=== PATIENT | male | born 1985 | race Caucasian/White ===

== ENCOUNTER 2019-04-14 18:22 | Emergency (ER) | payer OTHER ==
[2019-04-14 20:14] VITALS: BP 147/92
[2019-04-14] MEDS ORDERED: ACETAMINOPHEN 500 MG TABLET PO STA (20:20)
--- NOTE | 2019-04-14 20:30 | Ultrasound Report ---
Reason: testicular pain Procedure Date: 04/14/2019 Accession Number: [id number] / [id number] Procedure: US - Testicle w/Doppler Limited CPT Code: FULL RESULT: EXAM: SCROTAL ULTRASOUND EXAM DATE: 04/14/2019 07:48 PM. CLINICAL HISTORY: Testicular pain. COMPARISON: 04/14/2019 7:49 PM. TECHNIQUE: Real-time scanning was performed with static images obtained. Color-flow images were utilized. FINDINGS: Right: Testis: 4.6 x 2.4 x 2.9 cm. Normal size and echotexture. No mass, calcification, or abnormal blood flow. Epididymis: 1.2 x 0.6 x 0.9 cm. Normal size and echotexture. No mass or abnormal blood flow. Hydrocele: None. Varicocele: None. Left: Testis: 4.6 x 2.3 x 2.7 cm. Normal size and echotexture. No mass, calcification, or abnormal blood flow. Epididymis: 1 x 0.6 x 1.4 cm. Normal size and echotexture. No mass or abnormal blood flow. Hydrocele: None. Varicocele: None. IMPRESSION: Normal scrotal ultrasound. RADIA
--- NOTE | 2019-04-14 20:41 | ED Physician Documentation ---
History of Present Illness - Stated complaint Stated Complaint: MALE /POST PROCEDURE - Chief complaint Chief Complaint: General - History obtained from History obtained from: Patient - History of Present Illness Pain level max: 5 Pain level now: 5 Severity Comments: pain in left testicle, sharp shooting, radiating up into his abdomen Quality: sharp shooting in left testicle Radiates to: into left abdomen Improved by: nothing Worsened by: walking Associated symptoms: denies swelling, redness, discharge, discoloration, nausea, vomiting or fever - Treatment prior to arrival Treatment prior to arrival: ibuprofen - Additonal information Additional information: Patient had a vasectomy performed on April 02 and since then felt okay but then developed pain in the L testicle that he states isn't sitting right. Review of Systems Ten Systems: 10 systems reviewed and negative Constitutional: denies: Fever, Chills GI: denies: Abdominal Pain, Abdominal Swelling, Nausea, Vomiting : reports: Testicular pain. denies: Dysuria, Frequency, Hesitancy, Incontinent, Hematuria, Discharge, Testicular mass Skin: reports: Reviewed and negative PD PAST MEDICAL HISTORY - Past Medical History Past Medical History: Yes Cardiovascular: None Respiratory: Other Neuro: None Endocrine/Autoimmune: None GI: None : None HEENT: None Psych: None Musculoskeletal: None Derm: None Other Past Medical History: valley fever - Past Surgical History Past Surgical History: Yes HEENT: Tonsil/Adenoidectomy, Other - Present Medications Home Medications: Ambulatory Orders Medication Instructions Recorded Confirmed No Known Home Medications 04/14/19 04/14/19 - Allergies Allergies/Adverse Reactions: Allergies Allergy/AdvReac Type Severity Reaction Status Date / Time No Known Drug Allergies Allergy Verified 04/14/19 18:27 - Social History Does the pt smoke?: No Smoking Status: Never smoker Does the pt drink ETOH?: Yes Does the pt have substance abuse?: No - Immunizations Immunizations are current?: Yes PD ED PE NORMAL - Vitals Vital signs reviewed: Yes - General General: Alert and oriented X 3, No acute distress, Well developed/nourished - HEENT HEENT: Atraumatic, Pharynx benign - Neck Neck: Supple, no meningeal sign - Cardiac Cardiac: RRR - Respiratory Respiratory: No respiratory distress - Abdomen Abdomen: Soft, Non tender, Non distended - Rectal Rectal: Deferred - Derm Derm: Normal color, Warm and dry, No rash - Neuro Neuro: Alert and oriented X 3 Eye Opening: Spontaneous Motor: Obeys Commands Verbal: Oriented GCS Score: 15 - Psych Psych: Normal mood, Normal affect PD ED PE EXPANDED - Male Male : Normal Exam, Circumcised, Testes descended sharif, Normal lie/cremastaric, Other (no redness, swelling or abnormal lie). No: Skin lesions, Discharge, Testicular Mass, Tenderness Results - Vitals Vitals: Vital Signs - 24 hr 04/14/19 04/14/19 18:25 20:13 Temperature 36.6 C 37.4 C Heart Rate 93 80 Respiratory 20 15 Rate Blood Pressure 149/97 H 147/92 H O2 Saturation 97 96 Oxygen O2 Source Room air - Rads (name of study) No standard instances Radiology: Final report received (negative US of testicles, normal doppler flow) PD MEDICAL DECISION MAKING - ED course Complexity details: reviewed results, considered differential, d/w patient ED course: ddx - infection, abscess, cellulitis, varicocele, hydrocele, postoperative pain, testicular torsion 33 y/o M with testicular pain s/p vasectomy, worsening rather than improving for the last week. No fever Normal examination with normal lie, no swelling, normal cremasteric. Normal testicular US. Advised pt to f/u with Urologist in the morning to discuss his symptoms. Departure - Departure Disposition: 01 Home, Self Care Clinical Impression: Testicular pain, left, Postoperative pain Condition: Stable Instructions: ED Testicular Pain [facility] Follow-Up: your, doctor [Other]
== END 2019-04-14 21:18 | disposition home or self-care (01) ==
LOC: ED 18:22
DX: G89.18 Other acute postprocedural pain (principal); N50.812 Left testicular pain; Z98.52 Vasectomy status
CPT/HCPCS: 76870; 93976; 99282; 99283; A9270

== ENCOUNTER 2021-05-15 10:37 | Day surgery (SDC) | payer OTHER ==
[2021-05-15] MEDS ORDERED: SODIUM CHLORIDE 0.9% 1,000 ML IV STA (14:56)
[2021-05-15] MEDS ORDERED: HYDROmorphone 1 MG/ML CARPUJECT IVP STA (14:56)
--- NOTE | 2021-05-15 15:00 | ED Physician Documentation ---
History of Present Illness - Stated complaint Stated Complaint: MALE - Chief complaint Chief Complaint: General - Additonal information Additional information: 35-year-old male presents the emergency department for evaluation of a rectal p ain. He reports that about 9 days ago he developed acute nausea vomiting and diarrhea which persisted for about 2 days before resolving. However shortly thereafter he began to notice pain in his rectal area but further up in a location that he describes as his tailbone. Those symptoms began about 4 days ago since then the pain has gotten progressively worse and is now unable to sit without pain. He noticed pain after wiping this morning. No fevers. No history of similar. No history of hemorrhoids. Review of Systems Constitutional: denies: Fever, Chills Eyes: reports: Reviewed and negative Nose: reports: Reviewed and negative Throat: reports: Reviewed and negative Cardiac: reports: Reviewed and negative Respiratory: reports: Reviewed and negative GI: reports: Abdominal Pain, Nausea, Vomiting, Diarrhea : reports: Other (Rectal pain) Skin: reports: Reviewed and negative Musculoskeletal: reports: Reviewed and negative PD PAST MEDICAL HISTORY - Past Medical History Cardiovascular: None Respiratory: Other Neuro: None Endocrine/Autoimmune: None GI: None : None HEENT: None Psych: None Musculoskeletal: None Derm: None - Past Surgical History Past Surgical History: Yes HEENT: Tonsil/Adenoidectomy, Other - Present Medications Home Medications: Ambulatory Orders Medication Instructions Recorded Confirmed No Known Home Medications 04/14/19 04/14/19 - Allergies Allergies/Adverse Reactions: Allergies Allergy/AdvReac Type Severity Reaction Status Date / Time No Known Drug Allergies Allergy Verified 05/15/21 11:02 - Social History Does the pt smoke?: No Smoking Status: Never smoker Does the pt drink ETOH?: Yes Does the pt have substance abuse?: No - Immunizations Immunizations are current?: Yes PD ED PE EXPANDED - General General: Alert, No acute distress - Cardiac Cardiac: Regular Rate, Radial strong equal, Pedal strong equal, Cap refill < 2 sec - Respiratory Respiratory: Clear to ausultation sharif. No: Distress, Labored - Abdomen Abdomen: Normal Bowel sounds. No: Tender to palpation - Rectal Rectal: Normal Tone, Other (draining right perirectal abscess with purulent drainage) - Derm Derm: Normal color, Warm and dry - Neuro Neuro: Alert and Oriented X 3, CNII-XII intact Results - Vitals Vitals: Vital Signs - 24 hr 05/15/21 05/15/21 10:57 17:00 Temperature 36.9 C Heart Rate 95 88 Respiratory 16 16 Rate Blood Pressure 139/70 H 139/78 H O2 Saturation 99 100 Oxygen O2 Source Room air - Labs Labs: Laboratory Tests 05/15/21 05/15/21 05/15/21 15:05 15:05 15:05 WBC 10.0 RBC 4.37 L Hgb 12.9 L Hct 38.1 L MCV 87.2 MCH 29.5 MCHC 33.9 RDW 11.8 L Plt Count 272 MPV 8.5 Neut # (Auto) 7.0 H Lymph # (Auto) 2.0 [place] # (Auto) 0.8 Eos # (Auto) 0.2 Baso # (Auto) 0.0 Absolute Nucleated RBC 0.00 Nucleated RBC % 0.0 Sodium 138 Potassium 3.6 Chloride 106 Carbon Dioxide 23 Anion Gap 9.0 BUN 9 Creatinine 0.7 Estimated GFR (MDRD) 128 Glucose 103 H Lactic Acid 0.9 Calcium 9.1 Total Bilirubin 0.7 AST 28 ALT 54 Alkaline Phosphatase 78 Total Protein 7.9 Albumin 4.4 Globulin 3.5 Albumin/Globulin Ratio 1.3 Lipase 26 - Rads (name of study) CTabd Radiology: Final report received (3.4 x 2.5 cm left paracentral perianal abs cess.) PD MEDICAL DECISION MAKING - ED course Complexity details: reviewed results, re-evaluated patient, d/w patient, d/w family ED course: 35-year-old male presents the emergency department with worsening rectal pain for a about 5 days now. This follows a bout of vomiting and diarrhea about 1 week ago. On exam he does have a draining perianal abscess. A CT scan was performed it does show a 3.4 x 2.5 cm perianal abscess. I discussed the imaging findings with Dr. Burciaga. Patient will be admitted to same-day surgery for planned evacuation of this abscess later this evening or tomorrow morning. He does request Zosyn as antibiotic coverage and patient to be n.p.o. Plan and findings were discussed with the patient and he is in agreement Departure - Departure Disposition: ED Transfer to [facility] Clinical Impression: Perianal abscess
[2021-05-15 15:11] LABS: BASOPHILS % (AUTO) 0.2 %; EOSINOPHILS # (AUTO) 0.2 10^3/uL (0.0-0.7); EOSINOPHILS % (AUTO) 1.5 %; HCT - HEMATOCRIT 38.1 % (42.0-52.0); HGB - HEMOGLOBIN 12.9 g/dL (14.0-18.0); LYMPHOCYTES % (AUTO) 20.3 %; MEAN CORPUSCULAR HEMOGLOBIN 29.5 pg (27.0-31.0); MEAN CORPUSCULAR HGB CONC 33.9 g/dL (32.0-36.0); MEAN CORPUSCULAR VOLUME 87.2 fL (80.0-94.0); MEAN PLATELET VOLUME 8.5 fL (7.4-11.4); MONOCYTES # (AUTO) 0.8 10^3/uL (0.0-1.0); MONOCYTES % (AUTO) 7.9 %; NEUTROPHILS % (AUTO) 69.7 %; PLT - PLATELET COUNT 272 10^3/uL (130-450); RED BLOOD COUNT 4.37 10^6/uL (4.70-6.10); RED CELL DISTRIBUTION WIDTH 11.8 % (12.0-15.0)
[2021-05-15] MEDS ORDERED: IOVERSOL 320 100 ML VIAL IVP ONE ×2 (15:25→20:10)
[2021-05-15 15:28] LABS: ALBUMIN 4.4 g/dL (3.2-5.5); ALBUMIN/GLOBULIN RATIO 1.3 (1.0-2.2); BILIRUBIN,TOTAL 0.7 mg/dL (0.2-1.0); CALCIUM 9.1 mg/dL (8.5-10.3); CREATININE 0.7 mg/dL (0.6-1.2); POTASSIUM 3.6 mmol/L (3.5-5.0); TOTAL PROTEIN 7.9 g/dL (6.7-8.2)
--- NOTE | 2021-05-15 16:23 | CT Report ---
PROCEDURE: Abdomen/Pelvis W INDICATIONS: perirectal abscess CONTRAST: IV CONTRAST: Optiray 320 ml: 100 PO CONTRAST: *NO PO CONTRAST TECHNIQUE: After the administration of intravenous contrast, 5 mm thick sections acquired from the diaphragms to the symphysis. 5 mm thick coronal and sagittal reformats were acquired. For radiation dose reducti on, the following was used: automated exposure control, adjustment of mA and/or kV according to reji ent size. COMPARISON: None. FINDINGS: Image quality: Excellent. ABDOMEN: Lung bases: Lung bases are clear. Heart size is normal. There is a small hiatal hernia. Solid organs: There is diffuse hypoattenuation of the liver consistent with fatty infiltration, with relative sparing along the gallbladder fossa. Gallbladder appears within normal limits without calci fied gallstones. Biliary system is non dilated. Pancreas enhances normally. No adrenal nodules. Ki dneys demonstrate no hydronephrosis. There is a nonobstructing left renal stone measuring up to 7 mm. A small cyst is present within the right kidney. Peritoneum and bowel: Bowel loops demonstrate normal wall thickness and caliber. The appendix is nor mal in appearance. There is colonic diverticulosis without acute diverticulitis. No free fluid or air . Nodes and vessels: No retroperitoneal or mesenteric adenopathy by size criteria. Aorta and inferior vena cava are normal in size. Miscellaneous: There is a small umbilical hernia with partial herniation of the anterior wall of the transverse colon. No associated bowel obstruction or wall thickening to suggest bowel stranding in re lation. PELVIS: Genitourinary: Bladder wall thickness is normal. Miscellaneous: No inguinal hernias or adenopathy. There is a left perianal heterogeneous collection measuring approximately 3.4 x 1.6 x 2.5 cm extendin g posteriorly along the left aspect of the gluteal cleft. There is adjacent serpiginous fat stranding within the ischiorectal fat. Bones: No suspicious bony lesions. No vertebral body compression fractures. IMPRESSION: 1. Left paracentral perianal collection likely representing a perianal abscess. Heterogeneous interna l attenuation likely reflects complex internal contents. Evaluation for possible associated fistula i s limited on CT. If clinically indicated, an anal fistula protocol MRI may be performed for further e valuation. 2. No intraperitoneal free fluid or fluid collections. 3. Hepatic steatosis. 4. Colonic diverticulosis. Reviewed by: Andres Choe MD on 05/15/2021 4:22 PM PDT Approved by: Andres Choe MD on 05/15/2021 4:22 PM PDT Station ID: [id number]
[2021-05-15] MEDS ORDERED: PIPERACILLIN/TAZOBACTAM 3.375 GM in SODIUM CHLORIDE 0.9% MINIBAG 100 ML IV STA (16:53)
[2021-05-15] MEDS ORDERED: oxyCODONE 5 MG TABLET PO PRN (18:14)
[2021-05-15] MEDS ORDERED: METOCLOPRAMIDE 10 MG/2 ML VIAL IVP PRN ×2 (18:14→20:19)
[2021-05-15] MEDS ORDERED: ONDANSETRON 4 MG/2 ML VIAL IVP PRN ×2 (18:14→20:19)
[2021-05-15 18:16] LABS: B. PARAPERTUSSIS- RESP PCR PAN NOT DETECTED; B. PERTUSSIS- RESP PCR PANEL NOT DETECTED; C. PNEUMONIAE- RESP PCR PANEL NOT DETECTED; CORONAVIRUS 229E-RESP PCR NOT DETECTED; CORONAVIRUS HKU1-RESP PCR NOT DETECTED; CORONAVIRUS NL63-RESP PCR NOT DETECTED; CORONAVIRUS OC43-RESP PCR NOT DETECTED; HUMAN METAPNEUMOVIRUS NOT DETECTED; INFLUENZA A- RESP PCR PANEL NOT DETECTED; INFLUENZA B - RESP PCR PANEL NOT DETECTED; M. PNEUMONIAE- RESP PCR PANEL NOT DETECTED; PARAINFLUENZA VIRUS 1 NOT DETECTED; PARAINFLUENZA VIRUS 2 NOT DETECTED; PARAINFLUENZA VIRUS 3 NOT DETECTED; PARAINFLUENZA VIRUS 4 NOT DETECTED; RHINOVIRUS/ENTEROVIRUS NOT DETECTED; RSV- RESP PCR PANEL NOT DETECTED; SARS-CoV-2 -RESP PCR PANEL NOT DETECTED
[2021-05-15] MEDS ORDERED: D5NS W/20 MEQ KCL 1,000 ML IV SCH (19:00)
[2021-05-15] MEDS ORDERED: MIDAZOLAM 2 MG/2 ML VIAL ONE (20:17)
[2021-05-15] MEDS ORDERED: fentaNYL 100 MCG/2 ML VIAL ONE ×2 (20:17→21:00)
--- NOTE | 2021-05-15 20:18 | ANESTHESIA ---
Pre-Anesthesia VS, & Labs - Diagnosis perianal abscess - Procedure I and D of perianal abscess Vital Signs: Temp Pulse Resp BP Pulse Ox 36.9 C 65 16 146/91 H 98 05/15/21 10:57 05/15/21 19:00 05/15/21 19:00 05/15/21 19:00 05/15/21 19:00 Height: 5 ft 11 in Weight (kg): 88.904 kg Body Mass Index: 27.3 BMI Classification: Overweight - NPO >8 hours - Lab Results Current Lab Results: Laboratory Tests 05/15/21 15:05: Lactic Acid 0.9 05/15/21 15:05: Sodium 138, Potassium 3.6, Chloride 106, Carbon Dioxide 23, An ion Gap 9.0, BUN 9, Creatinine 0.7, Estimated GFR (MDRD) 128, Glucose 103 H, Calcium 9.1, Total Bilirubin 0.7, AST 28, ALT 54, Alkaline Phosphatase 78, Total Protein 7.9, Albumin 4.4, Globulin 3.5, Albumin/Globulin Ratio 1.3, Lipase 26 05/15/21 15:05: WBC 10.0, RBC 4.37 L, Hgb 12.9 L, Hct 38.1 L, MCV 87.2, MCH 29.5, MCHC 33.9, RDW 11.8 L, Plt Count 272, MPV 8.5, Neut # (Auto) 7.0 H, Lymph # (Auto) 2.0, [place] # (Auto) 0.8, Eos # (Auto) 0.2, Baso # (Auto) 0.0, Absolute Nucleated RBC 0.00, Nucleated RBC % 0.0 Fish Bones: 05/15/21 15:05 05/15/21 15:05 Home Medications and Allergies Active Medications Docusate Sodium (Docusate Sodium 100 Mg Capsule) 100 mg PO BID JENNIFER Ciprofloxacin (Cipro 400 Mg/200 Ml) 400 mg in 200 mls @ 200 mls/hr IV Q12H JENNIFER Potassium Chloride/Dextrose/Sod Cl (D5ns W/20 Meq Kcl) 1,000 mls @ 125 mls/hr IV .Q8H JENNIFER Metronidazole (Flagyl 500 Mg/100 Ml) 500 mg in 100 mls @ 100 mls/hr IV Q8H JENNIFER Ioversol (Ioversol 320 100 Ml Vial) 100 ml IVP ONCE ONE Stop: 05/15/21 20:11 Last Admin: 05/15/21 20:10 Dose: 100 ml Documented by: Methocarbamol (Methocarbamol 500 Mg Tablet) 500 mg PO Q6HR JENNIFER Metoclopramide HCl (Metoclopramide 10 Mg/2 Ml Vial) 10 mg IVP Q6HR PRN PRN Reason: nausea Ondansetron HCl (Ondansetron 4 Mg/2 Ml Vial) 4 mg IVP Q6HR PRN PRN Reason: Nausea / Vomiting Oxycodone HCl (Oxycodone 5 Mg Tablet) 5 mg PO Q4HR PRN PRN Reason: PAIN Polyethylene Glycol (Polyethylene Glycol 3350 17 Gm Packet) 17 gm PO BID JENNIFER No Known Home Medications 04/14/19 Allergies/Adverse Reactions: Allergies Allergy/AdvReac Type Severity Reaction Status Date / Time No Known Drug Allergies Allergy Verified 05/15/21 11:02 Anes History & Medical History - Anesthetic History Anesthesia Complications: reports: No previous complications - Medical History Cardiovascular: reports: None Pulmonary: reports: Other Gastrointestinal: reports: None Urinary: reports: None Neuro: reports: None Musculoskeletal: reports: None Endocrine/Autoimmune: reports: None Blood Disorders: reports: None Skin: reports: None Smoking Status: Never smoker - Surgical History Eyes Ears Nose Throat (EENT): reports: Tonsil/Adenoidectomy, Other Urologic: reports: Testicular surgery Exam General: Alert, Oriented x3 Dental: WNL Mouth Opening: Greater than 4 Fingerbreadths Neck Mobility: Normal Mallampati classification: II Thyromental Distance: greater than 6 cm Respiratory: Lungs clear Cardiovascular: Regular rate Plan Anesthesia Type: General Consent for Procedure(s) Verified and Reviewed: Yes Code Status: Attempt Resuscitation ASA classification: 2-Mild systemic disease Is this case an emergency?: Yes
[2021-05-15] MEDS ORDERED: ePHEDrine 50 MG/ML VIAL IVP PRN (20:19)
[2021-05-15] MEDS ORDERED: HYDROmorphone 0.5 MG/0.5 ML SYRINGE IVP PRN ×2 (20:19→21:33)
[2021-05-15] MEDS ORDERED: NALOXONE 0.4 MG/ML VIAL IVP PRN (20:19)
[2021-05-15] MEDS ORDERED: MORPHINE 2 MG/ML CARPUJECT IVP PRN (20:19)
[2021-05-15] MEDS ORDERED: fentaNYL 100 MCG/2 ML VIAL IVP PRN (20:19)
[2021-05-15] MEDS ORDERED: ATROPINE ABBOJECT 1 MG/10 ML SYRINGE IVP PRN (20:19)
[2021-05-15] MEDS ORDERED: PROPOFOL 200 MG/20 ML VIAL IVP ONE (20:23)
[2021-05-15] MEDS ORDERED: ONDANSETRON 4 MG/2 ML VIAL ONE (20:23)
[2021-05-15] MEDS ORDERED: LIDOCAINE-MPF 2% 5 ML VIAL ONE (20:23)
[2021-05-15] MEDS ORDERED: DEXAMETHASONE 4 MG/ML VIAL ONE (20:23)
--- NOTE | 2021-05-15 20:27 | SURGERY HX AND PHYSICAL(T) ---
Surgical History & Physical - Chief Complaint/HPI Chief Complaint: Fever, perianal abscess, levator spasm History of Present Illness: 35-year-old male presenting for perianal pain acute in onset. Patient reports awaking this morning with worsening of anal pain that began several days prior. Patient reports having suffered a gastroenteritis with loose stooling that has resolved however thereafter within the last few days she developed right perianal fullness and exquisite pain that became worse with resultant drainage. He was advised to proceed to the emergency room for further evaluation. No chronic history of bloody or loose stool. No family history of inflammatory bowel disease. No other pertinent medical history. Patient is active within the [employer]. No significant family history. Notable past surgical history to include none. Patient denies change in bowel function outside of recent gastroenteritis with diarrhea, denies bleeding per rectum, and also denies reflux associated symptoms. Patient does not use tobacco. Patient has a history of alcohol use but denies any associated abuse. Patient is and has children. Has no impediment to significant exercise tolerance and can walk 2 flights of stairs without hindrance. No history of heart attack or stroke. Patient takes no systemic anticoagulation. Endoscopic history includes none. - PMH/PSH/Social Hx Neurological History: None Eyes, Ears, Nose, Throat: None Cardiovascular: None Respiratory: Other Skin: None Endocrine/Autoimmune: None Gastrointestinal: None Urinary: None Musculoskeletal: None Blood Disorders: None Psychiatric: None Urologic: Testicular surgery Eyes Ears Nose Throat (EENT): Tonsil/Adenoidectomy, Other Smoking Status: Never smoker Does the pt drink ETOH?: Yes Frequency: Occasional Does the pt have substance abuse?: No - Home Meds and Allergies Home Medications: No Known Home Medications 04/14/19 Allergies/Adverse Reactions: Allergies Allergy/AdvReac Type Severity Reaction Status Date / Time No Known Drug Allergies Allergy Verified 05/15/21 11:02 - Review of Systems Constitutional: Fatigue, Fever, Malaise Gastrointestinal: Other (Recent loose stool and perianal pain) - Vital Signs Heart Rate: 65 Blood Pressure: 146/91 Temperature: 36.9 C Respiratory Rate: 16 O2 Saturation: 98 Weight (kg): 88.904 kg Height: 1.8 m - Physical Exam Comments/Other: General Appearance: positive: No acute distress Eyes Bilateral: positive: Normal inspection ENT: positive: ENT inspection nml Neck: positive: Nml inspection Respiratory: positive: Chest non-tender, No respiratory distress, Breath sounds nml. negative: Wheezes, Rales, Rhonchi Cardiovascular: positive: Regular rate & rhythm Abdomen: positive: No distention, Other. negative: Guarding, Rebound Extremities: positive: Non-tender, Full ROM, Nml appearance Neurologic/Psychiatric: positive: Oriented x3, CN's nml (2-12) Inspection: External Hemorrhoids -none Fissure in ano -none Erythema (perianal) -extensive Other -N/A Palpation: Fluctuance -large lateral area of fluctuance Palpable cord -yes Scar tissue -none Induration -yes - Patient Review Patient Review: Problems were reviewed with the patient during this visit. Medications were reviewed with the patient during this visit. Allergies were reviewed this patient during this visit. Pertinent Tests Reviewed: All pertitent test for this patient were reviewed. - Assessment & Plan Assessment and Plan: 35-year-old male presenting with acute onset perianal abscess that requires further drainage. Febrile episode and leukocytosis. CT scan showing significant loculations and concern for fistula. Risk and benefits discussed questions answered. Informed consent obtained. (1) GI - IVF, n.p.o. pending surgery. GI ppx. Anticipate ileus. Opiate sparring analgesia. (2) SURGERY - Exam under anesthesia with incision and drainage. Possible seton for fistula in anal. Miranda catheter for urinary retention. (3) Renal/Lytes - continue IVF. Renal indices within normal limits. (4) Respiratory - O2 as necessary. [Continue nebulizers.] Continue IS. [Chest XR.] [Diuresis.] (5) Heme - Will continue with DVT ppx. [H/H stable]. (6) Cardiovascular - HD acceptable. (7) Neuro - Opiate sparring analgesia. Antispasmodics with Robaxin. Toradol. Neuropathic agents. CT abdomen pelvis impression: 1. Left paracentral perianal collection likely represented perianal abscess. Heterogeneous internal attenuation likely reflects complex internal contents. Evaluation for possible associated fistula is limited on CT. 2. No intraperitoneal free fluid or air. 3. Hepatic steatosis 4. Colonic diverticulosis
[2021-05-15] MEDS ORDERED: ACETAMINOPHEN 1,000 MG/100 ML 100 ML IV ONE (20:53)
[2021-05-15] MEDS ORDERED: LACTATED RINGERS 1,000 ML IV SCH (21:00)
[2021-05-15] MEDS ORDERED: BUPIVACAINE 0.5% PF 10 ML VIAL SUBQ ONE (21:03)
[2021-05-15] MEDS ORDERED: LIDOCAINE 2%-EPI 1:100000 20 ML MDV SUBQ ONE (21:03)
[2021-05-15] MEDS ORDERED: LACTATED RINGERS 1,000 ML IV ONE (21:28)
--- NOTE | 2021-05-15 21:57 | OPERATIVE REPORT ---
Operative Report - General Procedure Date: 05/15/21 Planned Procedure: 1. Exam under anesthesia 2. Incision and drainage 3. Possible seton placement 4. Other indicated procedures Pre-Op Diagnosis: Perianal sepsis; posterior perianal abscess. Procedure Performed: 1. Exam under anesthesia 2. Incision and drainage 3. Debridement 4. Seton placement 5. Washout 6. Pudendal block 7. Miranda catheter placement Post Op Diagnosis: Same; transphincteric fistula. - Procedure Note Primary Surgeon: Patrica Secondary Surgeon: Aly Anesthesia Provider: Solo Anesthesia Technique: General LMA, Local, Other (40cc of 0.25% Marcaine and 1% lidocaine) Pathology: Culture Estimated Blood Loss (mL): 5 Drain/Tube Type: Other (1. Miranda catheter 2. Anal packing (Gelfoam wrapped with 2 sheets of Surgicel) 3. Iodoform packing strips) Indications: See EMR Findings: See operative note Complications: NONE - Other Other Information/Narrative: Intraoperative findings 1. Large posterior lateral left sided abscess cavity with significant effluent on drainage 2. 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 Procedure report Anorectal exam: Inspection: External Hemorrhoids -none Fissure in ano -none Erythema (perianal) -positive Other -N/A Palpation: Fluctuance -positive Palpable cord -left posterior lateral Scar tissue -none Induration -positive Digital Rectal Exam: Rectal Tone -appropriate Fluctuance -positive left posterior lateral Sphincter -intact with palpable cord Masses -none Anoscopy: Hemorrhoids - Grade II Bleeding -none Distal proctitis -none The patient was taken to the operating room, placed supine on operating table. Bilateral lower extremity serial compression devices were placed. After informed consent was confirmed and obtained, patient was induced for anesthesia as per above. The patient was placed in high lithotomy with candy-cane stirrups. At this time a time-out was called and the patient was performed for an intraoperative rigid/flexible endoscopy (see above for details). Digital rectal findings are listed above as well. Patient was thereafter prepped and draped in usual sterile fashion. A time-out was again called and agreed to by all in the room. Local was instilled for a perioperative block. Perioperative antibiotics were administered as listed above within an hour of incision if the patient had not already been dosed preoperatively as scheduled. Circumferential exam and evaluation of the perianal skin revealed findings as per above consistent with perianal sepsis with associated fluctuance concerning for an abscess. A planned incision and drainage procedure thereafter was performed incision as medially as possible without injuring the sphincteric complex, which was carefully palpated and protected throughout. Once decompressed, the fluid was sent for culture and sensitivity. The unique characteristics of the cavity are listed above under findings. Cultures were obtained. With the abscess decompressed, we thereafter proceeded to evaluate for the presence of an associated fistulous communication for which there was a clinical suspicion. Thus, the fistula probe was inserted into the cavity without any complication and passed through to the external opening. Please see above for specifics under findings. If the fistula probe was not easily passed, diluted hydrogen peroxide was utilized to identify the internal opening and if extravasation clearly appreciated, it was used to guide the fistula probe towards intubating the track. Classification is listed above. The probe was thereafter used to thread a silastic-vessel loop to act as a seton; this was doubled on itself and sized to fit. Once evaluated for any other tracts, if any, or extension if present (see above for both) the vessel loops were appropriately sized using silk ligatures. The external openings were assured for appropriately opening and sent for pathology as well if indicated. Circumferential exam was again performed without any evidence of bleeding or other pathology. 2 sheets of Surgicel wrapped about Gelfoam were placed in the anal canal for hemostasis. Iodoform packing strips were used to pack the large abscess cavity which was significant. Please note this area was bluntly debrided with surgical sponge and extensively irrigated clear. The patient tolerated the procedure well for which there was no complication. All counts correct for sponges, needles, and instruments. The patient was taken to the post anesthesia care unit in stable condition.
[2021-05-15] MEDS ORDERED: TAMSULOSIN 0.4 MG CAPSULE PO SCH (22:00)
--- NOTE | 2021-05-15 22:09 | PROVIDER PROGRESS NOTE ---
Progress Note BRIEF Operative Report - General Procedure Date: 05/15/21 Planned Procedure: 1. Exam under anesthesia 2. Incision and drainage 3. Possible seton placement 4. Other indicated procedures Pre-Op Diagnosis: Perianal sepsis; posterior perianal abscess. Procedure Performed: 1. Exam under anesthesia 2. Incision and drainage 3. Debridement 4. Seton placement 5. Washout 6. Pudendal block 7. Miranda catheter placement Post Op Diagnosis: Same; transphincteric fistula. - Procedure Note Primary Surgeon: Patrica Secondary Surgeon: Aly Anesthesia Provider: Solo Anesthesia Technique: General LMA, Local, Other (40cc of 0.25% Marcaine and 1% lidocaine) Pathology: Culture Estimated Blood Loss (mL): 5 Drain/Tube Type: 1. Miranda catheter 2. Anal packing (Gelfoam wrapped with 2 sheets of Surgicel) 3. Iodoform packing strips Indications: See EMR Findings: See operative note Complications: NONE
[2021-05-15] MEDS: polyethylene glycoL 3350 17 GM PACKET PO SCH (22:23)
[2021-05-15] MEDS: DOCUSATE SODIUM 100 MG CAPSULE PO SCH (22:23)
[2021-05-15] MEDS: CIPROFLOXACIN 400 MG/200 ML 400 MG/200 ML BAG IV SCH (22:23)
--- NOTE | 2021-05-15 22:59 | ANESTHESIA POST OP EVALUATION ---
Anesthesia Post Eval - Post Anesthesia Eval Vitals: Last Vital Signs Temp 37.1 C 05/15/21 22:50 Pulse 66 05/15/21 22:50 Resp 18 05/15/21 22:50 BP 127/94 H 05/15/21 22:50 Pulse Ox 96 05/15/21 22:50 CV Function Including HR & BP: Stable Pain Control: Satisfactory Nausea & Vomiting: Negative Mental Status: Baseline Respiratory Status: Airway Patent Hydration Status: Satisfactory Anesthesia Complications: None
[2021-05-16] MEDS: methocarbamoL 500 MG TABLET PO SCH ×2 (00:17→05:44)
[2021-05-16] MEDS: metroNIDAZOLE 500 MG/100 ML 500 MG/100 ML BAG IV SCH ×2 (00:19→00:38)
[2021-05-16 06:07] LABS: ALBUMIN 4.2 g/dL (3.2-5.5); ALBUMIN/GLOBULIN RATIO 1.3 (1.0-2.2); BILIRUBIN,TOTAL 0.7 mg/dL (0.2-1.0); CALCIUM 9.3 mg/dL (8.5-10.3); CREATININE 0.7 mg/dL (0.6-1.2); POTASSIUM 4.4 mmol/L (3.5-5.0); TOTAL PROTEIN 7.5 g/dL (6.7-8.2)
[2021-05-16] MEDS: CIPROFLOXACIN 400 MG/200 ML 400 MG/200 ML BAG IV SCH (07:27)
[2021-05-16 07:46] VITALS: BP 137/92
[2021-05-16] MEDS: polyethylene glycoL 3350 17 GM PACKET PO SCH (08:36)
[2021-05-16] MEDS: DOCUSATE SODIUM 100 MG CAPSULE PO SCH (08:36)
== END 2021-05-16 10:43 | disposition home or self-care (01) ==
LOC: ED 10:37 → SDS 18:10 → OBS 21:47 → SDS 05-16 10:43
PROVIDERS: ATTEND Surgery
DX: K61.0 Anal abscess (principal); K64.1 Second degree hemorrhoids; Z20.822 Contact with and (suspected) exposure to COVID-19
CPT/HCPCS: 0202U; 36415; 46020; 46050; 74177; 80048; 80053; 83605; 83690; 85025; 87070; 87075; 87076; 87077; 87181; 87205; 96365; 96375; 99284; 99285; A9270; J0131; J1170; J7120; Q9967